=== PATIENT | female | born 1970 | race Caucasian/White ===

== ENCOUNTER → 2016-08-03 | Outpatient (CLI) | payer OTHER ==
[~2016-08-03] MED LIST: BUFEN200 MG PO; CYCLOBENZAPRINE10 MG PO; DAYPRO600 M1 PO; Estrace1 MG PO; FLEXERIL10 MG PO; HYDROCODONE BIT1 T11 PO; LIPITOR40 MG PO; LISINOPRIL5 MG PO; MEDROL DOSEPAK4 MG PO; MOTRIN800 MG PO; NAPROSYN500 MG PO; NEURONTIN300 MG PO; NORCO 325 MG-7.1 TAB PO; OYSCO 500500 M1 PO; PERCOCET 325 MG1 TA2 PO; PERCOCET 325 MG1 TA6 PO; PREDNICOT20 MG PO; ROBAXIN750 MG PO; SYNTHROID0.1 MG PO; TRAMADOL50 MG PO; VITAMIN D5000 I3 PO; ZOFRAN4 MG PO; ZOLOFT50 MG PO
== END | disposition home or self-care (01) ==
LOC: MAMMO 11:00
DX: Z12.31 Encounter for screening mammogram for malignant neoplasm of breast (principal)

== ENCOUNTER 2016-10-30 19:00 | Emergency (ER) | payer OTHER ==
[~2016-10-30] VITALS: Ht 154.9 cm; Wt 65.8 kg
[2016-10-30 19:08] VITALS: BP 144/98
[2016-10-30] MEDS ORDERED: CYCLOBENZAPRINE10 MG PO (20:01)
[2016-10-30] MEDS ORDERED: NAPROSYN500 MG PO (20:01)
== END 2016-10-30 20:07 | disposition home or self-care (01) ==
LOC: ED 19:00
DX: S16.1XXA Strain of muscle, fascia and tendon at neck level, initial encounter (principal); S39.012A Strain of muscle, fascia and tendon of lower back, initial encounter; M79.644 Pain in right finger(s); F17.200 Nicotine dependence, unspecified, uncomplicated; Z88.6 Allergy status to analgesic agent; Z88.8 Allergy status to other drugs, medicaments and biological substances; Z79.899 Other long term (current) drug therapy; Y04.0XXA Assault by unarmed brawl or fight, initial encounter; Y93.89 Activity, other specified; Y92.89 Other specified places as the place of occurrence of the external cause; Y99.8 Other external cause status

== ENCOUNTER → 2016-11-01 | Outpatient (CLI) | payer OTHER | END | disposition home or self-care (01) | LOC: MRI 09:49 | DX: M47.896 Other spondylosis, lumbar region (principal); M51.26 Other intervertebral disc displacement, lumbar region; M48.06 Spinal stenosis, lumbar region ==

== ENCOUNTER → 2016-11-22 | Outpatient (CLI) | payer OTHER | END | disposition home or self-care (01) | LOC: MRI 08:55 | DX: M47.896 Other spondylosis, lumbar region (principal); D18.09 Hemangioma of other sites ==

== ENCOUNTER → 2018-05-10 | Outpatient (CLI) | payer OTHER ==
[2018-05-10 11:54] LABS: BILIRUBIN NEGATIVE (NEGATIVE); BLOOD 1+ (NEGATIVE); CLARITY SL CLOUDY (CLEAR); COLOR YELLOW (YELLOW); GLUCOSE NEGATIVE (NEGATIVE); KETONE NEGATIVE (NEGATIVE); LEUKO ESTERASE NEGATIVE (NEGATIVE); NITRITE NEGATIVE (NEGATIVE); PH 5.5 (5.0-9.0); SPECIFIC GRAVITY 1.025 (1.005-1.030); UROBILINOGEN 0.2 E.U./dl (0.2-1.0)
[2018-05-10 12:04] LABS: BASO # 0.1 10*3/uL (0.0-0.1); BASO % 0.8 % (0.0-1.0); EOS # 0.1 10*3/uL (0.0-0.4); EOS % 1.6 % (1.0-4.0); HEMATOCRIT 47.7 % (37.0-47.0); HEMOGLOBIN 15.5 g/dl (12.0-16.0); LYMPH # 3.1 10*3/uL (1.3-4.4); LYMPH % 35.7 % (27.0-41.0); MEAN CELL VOLUME 104.1 fl (81.0-99.0); MEAN CORPUSCULAR HGB 33.8 pg (27.0-31.0); MEAN CORPUSCULAR HGB CONC 32.5 g/dl (33.0-37.0); MEAN PLATELET VOLUME 10.8 fl (9.6-12.3); MONO # 0.5 10*3/uL (0.1-1.0); MONO % 5.7 % (3.0-9.0); NEUT # 4.8 10*3/uL (2.3-7.9); NEUT % 55.7 % (47.0-73.0); PLATELET COUNT AUTOMATED 247 10*3/uL (130-400); RED BLOOD COUNT 4.58 10*6/uL (4.10-5.10); RED CELL DISTRI WIDTH 14.5 % (0-14.5); WHITE BLOOD COUNT 8.6 10*3/uL (4.8-10.8)
[2018-05-10 12:29] LABS: ALBUMIN 4.1 gm/dl (3.1-4.5); ALKALINE PHOSPHATASE 67 U/L (45-117); BUN 14 mg/dl (7-24); CHLORIDE 105 mmol/L (98-107); CHOLESTEROL 222 mg/dL (<200); CREATININE 0.86 mg/dL (0.55-1.02); HDL CHOLESTEROL 78 mg/dl (40-60); LDL CHOLESTEROL 131 mg/dL (9-159); POTASSIUM 3.4 mmol/L (3.5-5.1); SGOT/AST 14 IU/L (3-35); SGPT/ALT 18 U/L (12-78); SODIUM 139 mmol/L (136-145); THYROXINE (T4) TOTAL 0.7 ug/dl (4.8-13.9); TOTAL PROTEIN 8.5 gm/dL (6.4-8.2); TRIGLYCERIDES 63 mg/dl (<150); VLDL CHOLESTEROL 13 mg/dL (6-40)
[2018-05-10 12:30] LABS: BACTERIA 2+; WBC 0-2 wbc/hpf (0-5)
[2018-05-10 12:31] LABS: MUCOUS 1+
== END | disposition home or self-care (01) ==
LOC: LAB 11:26
PROVIDERS: Nurse Practitioner Primary Care
DX: I10 Essential (primary) hypertension (principal); E55.9 Vitamin D deficiency, unspecified; E78.5 Hyperlipidemia, unspecified; E05.80 Other thyrotoxicosis without thyrotoxic crisis or storm; E03.8 Other specified hypothyroidism; R73.09 Other abnormal glucose

== ENCOUNTER 2020-06-27 13:34 | Emergency (ER) | payer OTHER ==
[~2020-06-27] VITALS: Ht 152.4 cm; Wt 61.2 kg
[2020-06-27] MEDS ORDERED: HYDROCODONE-AC1 EAC1 PO (16:11)
[2020-06-27] MEDS ORDERED: IBU800 MG PO (16:11)
[2020-06-27] MEDS ORDERED: AMOXICILLIN500 M3 PO (16:17)
== END 2020-06-27 16:18 | disposition home or self-care (01) ==
LOC: ED 13:34
DX: S02.5XXA Fracture of tooth (traumatic), initial encounter for closed fracture (principal); S09.93XA Unspecified injury of face, initial encounter; F17.200 Nicotine dependence, unspecified, uncomplicated; Z88.8 Allergy status to other drugs, medicaments and biological substances; Z79.899 Other long term (current) drug therapy; Z98.890 Other specified postprocedural states; W19.XXXA Unspecified fall, initial encounter; Y93.89 Activity, other specified; Y92.89 Other specified places as the place of occurrence of the external cause; Y99.8 Other external cause status

== ENCOUNTER → 2020-08-27 | Outpatient (CLI) | payer OTHER ==
[~2020-08-27] MED LIST changes: +AMOXICILLIN500 M3 PO; +HYDROCODONE-AC1 EAC1 PO; +IBU800 MG PO
== END | disposition home or self-care (01) ==
LOC: LAB 12:39
PROVIDERS: ATTEND Internal Medicine
DX: E03.9 Hypothyroidism, unspecified (principal)

== ENCOUNTER 2021-02-24 08:03 | Emergency (ER) | payer OTHER ==
[~2021-02-24] VITALS: Ht 152.4 cm; Wt 63.5 kg
[2021-02-24] MEDS ORDERED: BUSPAR15 MG PO (08:14)
[2021-02-24] MEDS ORDERED: XANAX1 MG PO (08:15)
[2021-02-24] MEDS ORDERED: LATU40TA PO (08:15)
[2021-02-24] MEDS ORDERED: CYCLOBENZAPRINE5 M3 PO (11:02)
== END 2021-02-24 11:58 | disposition home or self-care (01) ==
LOC: ED 08:03
DX: S50.812A Abrasion of left forearm, initial encounter (principal); M54.50 Low back pain, unspecified; W10.8XXA Fall (on) (from) other stairs and steps, initial encounter; Y93.89 Activity, other specified; Y92.89 Other specified places as the place of occurrence of the external cause; Y99.8 Other external cause status

== ENCOUNTER 2022-05-07 10:38 | Emergency (ER) | payer OTHER ==
[~2022-05-07] VITALS: Wt 56.7 kg
[~2022-05-07 10:38] MED LIST changes: +BUSPAR15 MG PO; +CYCLOBENZAPRINE5 M3 PO; +LATU40TA PO; +XANAX1 MG PO
[2022-05-07] MEDS ORDERED: NAPROSYN500 MG PO (12:14)
== END 2022-05-07 12:23 | disposition home or self-care (01) ==
LOC: ED 10:38
DX: M54.41 Lumbago with sciatica, right side (principal); I10 Essential (primary) hypertension; K21.9 Gastro-esophageal reflux disease without esophagitis; F41.9 Anxiety disorder, unspecified; F32.A Depression, unspecified; G43.909 Migraine, unspecified, not intractable, without status migrainosus; Z88.5 Allergy status to narcotic agent; Z88.8 Allergy status to other drugs, medicaments and biological substances; Z90.710 Acquired absence of both cervix and uterus; Z98.890 Other specified postprocedural states; Z87.891 Personal history of nicotine dependence

== ENCOUNTER 2022-05-17 08:30 | Emergency (ER) | payer OTHER ==
[~2022-05-17] VITALS: Ht 210.8 cm; Wt 56.7 kg
[2022-05-17 09:13] LABS: BASO # 0.1 10*3/uL (0.0-0.1); EOS # 0.2 10*3/uL (0.0-0.4); HEMATOCRIT 41.1 % (37.0-47.0); LYMPH # 3.2 10*3/uL (1.3-4.4); LYMPH % 41.4 % (27.0-41.0); MEAN CELL VOLUME 104.6 fl (81.0-99.0); MEAN CORPUSCULAR HGB 34.1 pg (27.0-31.0); MEAN CORPUSCULAR HGB CONC 32.6 g/dl (33.0-37.0); MEAN PLATELET VOLUME 10.2 fl (9.6-12.3); MONO # 0.5 10*3/uL (0.1-1.0); MONO % 6.7 % (3.0-9.0); NEUT # 3.7 10*3/uL (2.3-7.9); NEUT % 47.5 % (47.0-73.0); PLATELET COUNT AUTOMATED 319 10*3/uL (130-400); RED BLOOD COUNT 3.93 10*6/uL (4.10-5.10); RED CELL DISTRI WIDTH 13.8 % (0-14.5); WHITE BLOOD COUNT 7.8 10*3/uL (4.8-10.8)
[2022-05-17 09:15] LABS: BILIRUBIN Negative (Negative); BLOOD Negative (Negative); CLARITY Clear (Clear); COLOR Yellow (Yellow); GLUCOSE Negative (Negative); KETONE Negative (Negative); LEUKO ESTERASE Trace (Negative); NITRITE Negative (Negative); UROBILINOGEN 0.2 E.U./dl (0.0-1.0)
[2022-05-17 09:24] LABS: URINE AMPHETAMINES Negative (1000ng/ml); URINE BARBITURATES Negative (200ng/ml); URINE BENZODIAZEPINES Negative (200ng/ml); URINE CANNABINOIDS (THC) Positive (50ng/ml); URINE COCAINE Negative (300ng/ml); URINE METHADONE Negative (300ng/ml); URINE OPIATES Negative (300ng/ml); URINE PHENCYCLIDINE Negative (25ng/ml)
[2022-05-17 09:28] LABS: ALKALINE PHOSPHATASE 55 U/L (46-116); BUN 10 mg/dl (9-23); CHLORIDE 109 mmol/L (98-107); POTASSIUM 3.4 mmol/L (3.4-5.1); SGPT/ALT 26 U/L (10-49); TOTAL PROTEIN 7.2 gm/dL (6.0-8.0)
[2022-05-17 10:03] LABS: BACTERIA 1+
== END 2022-05-17 10:23 | disposition home or self-care (01) ==
LOC: ED 08:30
PROVIDERS: Emergency Medicine
DX: R53.1 Weakness (principal); I10 Essential (primary) hypertension; K21.9 Gastro-esophageal reflux disease without esophagitis; F41.9 Anxiety disorder, unspecified; F32.A Depression, unspecified; G43.909 Migraine, unspecified, not intractable, without status migrainosus; Z88.6 Allergy status to analgesic agent; Z88.8 Allergy status to other drugs, medicaments and biological substances; Z90.710 Acquired absence of both cervix and uterus; Z98.890 Other specified postprocedural states; Z79.899 Other long term (current) drug therapy

== ENCOUNTER → 2022-06-16 | Outpatient (CLI) | payer OTHER | END | disposition home or self-care (01) | LOC: RAD 12:02 | PROVIDERS: ATTEND Nurse Practitioner Family | DX: M51.36 Other intervertebral disc degeneration, lumbar region (principal); M51.34 Other intervertebral disc degeneration, thoracic region; M50.30 Other cervical disc degeneration, unspecified cervical region; M48.02 Spinal stenosis, cervical region; M48.061 Spinal stenosis, lumbar region without neurogenic claudication; M48.05 Spinal stenosis, thoracolumbar region ==

== ENCOUNTER 2024-12-07 11:51 | Emergency (ER) | payer OTHER ==
[~2024-12-07] VITALS: Ht 152.4 cm; Wt 70.3 kg
[2024-12-07] MEDS ORDERED: CYCLOBENZAPRINE5 M3 PO (14:18)
[2024-12-07] MEDS ORDERED: Motrin,Rufen800 MG PO (14:18)
[2024-12-07] MEDS ORDERED: Acetaminophen/Hydrocodone 5 MG/325 MG TABLET PO ONE (14:20)
== END 2024-12-07 14:20 | disposition home or self-care (01) ==
LOC: ED 11:51
DX: M54.41 Lumbago with sciatica, right side (principal); Z88.6 Allergy status to analgesic agent; Z88.8 Allergy status to other drugs, medicaments and biological substances; Z79.899 Other long term (current) drug therapy; Z90.711 Acquired absence of uterus with remaining cervical stump

== ENCOUNTER → 2025-02-06 | Outpatient (CLI) | payer OTHER ==
[~2025-02-06] MED LIST changes: +Motrin,Rufen800 MG PO
== END | disposition home or self-care (01) ==
LOC: US 01-02 13:30
PROVIDERS: ATTEND Nurse Practitioner Women's Health
DX: R10.20 Pelvic and perineal pain unspecified side (principal)